=== PATIENT | female | born 2005 | race African-American/Black ===

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

== ENCOUNTER 2024-03-10 05:13 | Emergency (ER) | payer OTHER ==
[2024-03-10 05:27] VITALS: RESP 20; BMI 34.9
[2024-03-10] MEDS ORDERED: ACETAMINOPHEN INJECTION 100 ML IVPB ONE (05:55)
[2024-03-10 06:48] LABS: URINE APPEARANCE CLEAR; URINE BILIRUBIN NEGATIVE (NEGATIVE); URINE COLOR YELLOW; URINE GLUCOSE (UA) NEGATIVE (NEGATIVE); URINE KETONE NEGATIVE (NEGATIVE); URINE LEUK ESTERASE NEGATIVE (NEGATIVE); URINE NITRITE NEGATIVE (NEGATIVE); URINE PROTEIN NEGATIVE (NEGATIVE)
[2024-03-10 06:49] LABS: BASO % 0.6 % (0-2.0); EOS % 2.2 % (0-4.5); HEMOGLOBIN 9.9 GM/dL (10.7-15.3); MCH 26.3 pg (25.7-33.7); MCHC 33.1 g/dl (32.0-36.0); MEAN CELL VOLUME 79.5 fl (80-96); MEAN PLT VOLUME 7.6 fl (7.5-11.1); MONO % 8.2 % (3.8-10.2); PLATELET COUNT 358 10^3/uL (134-434); RBC 3.78 M/mm3 (3.60-5.2); RDW 13.1 % (11.6-15.6); WHITE BLOOD COUNT 7.7 K/mm3 (4.0-10.0)
[2024-03-10] MEDS: ACETAMINOPHEN 1000 MG/100 ML BAG IVPB ONE (06:53)
[2024-03-10] MEDS: SODIUM CHLORIDE 0.9% 500 ML INFUS.BAG IV ONE (06:53)
[2024-03-10 07:19] LABS: POTASSIUM 3.3 mmol/L (3.5-5.1)
[2024-03-10 07:21] LABS: CALCIUM 8.4 mg/dL (8.5-10.1)
[2024-03-10 07:22] LABS: ALBUMIN 3.2 g/dl (3.4-5.0); BLOOD UREA NITROGEN 8.9 mg/dL (7-18)
[2024-03-10 07:25] LABS: CREATININE 0.7 mg/dL (0.55-1.3)
[2024-03-10 07:26] LABS: BILIRUBIN,TOTAL 0.5 mg/dL (0.2-1)
[2024-03-10 07:27] LABS: TOT PROT 6.9 g/dl (6.4-8.2)
[2024-03-10 10:48] VITALS: BP 125/68; PULSE 80; TEMP 98.2
== END 2024-03-10 12:15 | disposition home or self-care (01) ==
LOC: JER 05:13
PROC: 3E033NZ Introduction of Analgesics, Hypnotics, Sedatives into Peripheral Vein, Percutaneous Approach (ICD-10-PCS; principal; 2024-03-10)
DX: R10.11 Right upper quadrant pain (principal); R10.30 Lower abdominal pain, unspecified
CPT/HCPCS: 36415; 74160-TC; 76705-TC; 80053; 81003; 83690; 84703; 85025; 87086; 93005; 93010; 99285-25; J0131